=== PATIENT | male | born 2005 | race African-American/Black ===

== ENCOUNTER 2023-05-22 22:14 | Emergency (ER) | payer OTHER ==
[~2023-05-22] VITALS: Ht 190.5 cm; Wt 79.4 kg
[2023-05-22 22:27] VITALS: BP_SYST 119; PULSE 89; RESP 16; TEMP 98.1; O2SAT 99
[2023-05-22] MEDS ORDERED: FLUORESCEIN SODIUM 1 MG OPHTHALMIC STRIP OP ONE (22:32)
[2023-05-22] MEDS ORDERED: BALANCED SALT IRRIG SOLN 15 ML IO ONE (22:32)
[2023-05-22 23:50] VITALS: BP_SYST 119; PULSE 89; RESP 16; TEMP 98.1; O2SAT 99
[2023-05-22] MEDS ORDERED: TETRACAINE HCL/PF 0.5% OPHTHALMIC DROPS 4 ML OP ONE (23:54)
[2023-05-23] MEDS ORDERED: OFLO5DRO6 RIGHT EYE
== END 2023-05-22 23:50 | disposition home or self-care (01) ==
LOC: SED 22:14
DX: S05.01XA Injury of conjunctiva and corneal abrasion without foreign body, right eye, initial encounter (principal); Z79.899 Other long term (current) drug therapy; W21.05XA Struck by basketball, initial encounter; Y93.89 Activity, other specified; Y92.89 Other specified places as the place of occurrence of the external cause; Y99.8 Other external cause status
CPT/HCPCS: 99283